=== PATIENT | male | born 1990 | race Caucasian/White ===

== ENCOUNTER 2017-07-09 17:11 | Emergency (ER) | payer OTHER ==
[~2017-07-09] VITALS: Ht 180.3 cm; Wt 122.7 kg
[2017-07-09] MEDS ORDERED: IBUPROFEN 600 MG TAB PO ONE (17:45)
[2017-07-09 18:36] VITALS: BP 139/94
--- NOTE | 2017-07-10 07:33 | REP ---
Right humerus two views : There is no fracture or dislocation. Mineralization and joint spaces are normal. There are no calcifications or foreign bodies. Impression: Negative right humerus . Signed by Simeon Fisher MD 07/10/2017 07:24 A
--- NOTE | 2017-07-10 07:34 | REP ---
Right wrist four views : There is no fracture or dislocation. Mineralization and joint spaces are normal. There are no calcifications or foreign bodies. Impression: Negative right wrist . Signed by Simeon Fisher MD 07/10/2017 07:25 A
== END 2017-07-09 18:38 | disposition home or self-care (01) ==
LOC: M ED 17:11
DX: S40.021A Contusion of right upper arm, initial encounter (principal); S60.211A Contusion of right wrist, initial encounter; V43.52XA Car driver injured in collision with other type car in traffic accident, initial encounter; Y92.410 Unspecified street and highway as the place of occurrence of the external cause; Y93.9 Activity, unspecified; Y99.9 Unspecified external cause status